=== PATIENT | female | born 1965 | race Caucasian/White ===

== ENCOUNTER 2022-01-05 17:27 | Outpatient (CLI) | payer MEDICAID, SELFPAY | END 2022-01-05 17:28 | disposition home or self-care (01) | LOC: LKVREF 01-13 08:54 | PROVIDERS: PCP Nurse Practitioner Family; Visit Provider Registered Nurse | DX: R35.0 Frequency of micturition (principal); N30.90 Cystitis, unspecified without hematuria | CPT/HCPCS: 87086; 87186 ==

== ENCOUNTER 2022-11-20 12:31 | Outpatient (CLI) | payer MEDICAID, SELFPAY ==
--- OUTSIDE RECORDS SUMMARY | 2022-11-22 01:48 | XMS_ITS | Continuity of Care Document ---
Author Name Unknown Organization [facility] Address [address] [address] [place] [address] Phone Care Team Providers Care Line Camera Operator Name Role Phone Arpan Escudero MD Unavailable Unavailable Allergies, Adverse Reactions, Alerts Substance Reaction Status Criticality No Known Allergies Active No Inform ation Medications Medication Instructions Dosage Effective Dates (start - stop) Status Comments NALTREXONE HCL (unknown strength) take 3 milligram by oral route every day Not Available - Active Lexapro 10 mg tablet take 1 tablet by oral route every day 10 MG - Active estradiol 1 mg tablet take 1 tablet by oral route every day 1 MG - Active Xanax 0.5 mg tablet take up to 3 Tablet by Oral route every day as needed - Active Procedures Procedure Date Colonoscopy Flex; W/bx 1/mx Level Iv-surg Path Gross/micro Routine Serum Collection Established Level 4 New Level 3 Advance Directives Directive Yes / No Effective Date File Name No Information Encounters Encounter Description Practice Location Reason(s) For Visit Diagnoses Date Provider Providers Copied on Encounter [facility], [address] [address], [place], [id number], [place] tel:[phone] [facility] Generalized abdominal pain 3 Kota Antony. [address] [address], [facility] [address], [place], [id number] , [place]. tel:[phone] [facility], [address] [address], [place], [place], [id number], [place] tel:[phone] [facility] GI Symptoms or Concerns (chief complaint) Change in bowel habitGeneralized abdominal painChange in bowel habitGeneralized abdominal pain 3 Serjio Gates. [address], [place], [place], [id number] , [place]. tel: [phone] Referring Provider: Referral Self. [facility], [address] [address], [place], [place], [id number], [place] tel:[phone] [facility] Generalized abdominal pain 3 Kota Antony. [address], [address], [place], [place], [id number] , [place]. tel: [phone] Referring Provider: Referral Self. Established Level 4 [facility], [address] [address], [place], [place], [id number], [place] tel:[phone] [facility] GI Symptoms or Concerns (chief complaint) Generalized abdominal pain 3 Kota Antony. [address] [facility] [address], [facility] [address], [place], [place], [id number] , [place]. tel: [phone] Referring Provider: Stephen Law, [address] [place], [address]. tel:[phone] New Level 3 [facility], [address] [address], [place], [place], [id number], [place] tel:[phone] [facility] GI Symptoms or Concerns (chief complaint) Change in bowel habitsBloatingGener alized abdominal pain 2 Fannie Howell . [address], [address], [place], [place], [id number] , [place]. tel:[phone] Referring Provider: Stephen Law, [address] [place], [address]. tel:[phone] [facility], [address] [address], [place], [place], [id number], [place] tel:[phone] [facility] No Information 2 Fannie Howell . [address], [facility] [address], [place], [id number] , [place]. tel: [phone] [facility], [address] [address], [place], [id number], [place] tel:[phone] [facility] No Information 2 Reena Bueno. [address] [facility] [address], [address], [place], [id number] , [place]. tel: [phone] Family History Family Member Type Diagnosis Age At Onset Son Problem Alive and well Brother Problem (finding) Crohn's disease Father Problem (finding) Alcoholism Sister Problem Alive and well Brother Problem Asthma Daughter Problem Alive and well Brother Problem Alcoholism Mother Problem Hepatitis C Sister Problem (finding) Asthma Brother Problem Diverticular disease Immunizations Vaccine Date Status Comments SARS-COV-2 (COVID-19) vaccin e, mRNA, spike protein, LNP, preservative free, 100 mcg/0.5mL dose or 50 mcg/0.25mL dose administered Note: [facility] bi -directional interface ; Source: Other Registry SARS-COV-2 (COVID-19) vaccin e, mRNA, spike protein, LNP, preservative free, 100 mcg/0.5mL dose or 50 mcg/0.25mL dose administered Note: [facility] bi -directional interface ; Source: Other Registry Afluria Qd administered Note: [facility] bi-directional interface ; Source: Other Registry Payers Payer name Insurance type Covered libertarian ID Authorbisia daniiessence(s) [facility] [id number] Social History Type Description Quantity Date Captured Comments Alcohol Use Details Unknown Caffeine Use Details Unknown Tobacco Use Status No Information Smoking Status No Information Sex Female Chief Complaint And Reason For Visit No Information Reason For Referral Reason For Referral No Information Plan Of Treatment Date Type Action Status Referral Ordered: Colonoscopy Appointment date/timeframe: 08/10/2022 ordered Referral Ordered: Celiac: TTG IgA + Total IgA Appointment date/timeframe: First Available ordered Referral Ordered: TSH Appointment date/timeframe: First Available ordered History Of Present Illness Encounter Date Complaint History Of Prese nt Illness GI Symptoms or Concerns GI Symptoms or Concerns The norah ent is a 56-year-old female undergoing a virtual visit followup, informed consent obtained from patient, a total of 50 minutes spent.Patient was previously seen on 07/20/2021 with a history of abdominal discomfort, constipation and episodes of diarrhea. She was recommended to have increased fiber in her diet, which she states she did without improvement, although we are not too sure on how much fiber she was taking. She complains of generalized gaseousness and bloating and loose stools. She thinks this is worse off the dairy products, but does occur without. She is now about 3 to 4 times a week, developing some gaseousness and loose stools, may gone for several days. She then may go several days without a bowel motion. She denies heartburn, dysphagia, nausea, vomiting, melena, rectal bleeding, or weight loss.Her generalized gaseousness and bloating persists, may be worse with lactulose. She has noted worsening symptoms when she is under stress. The last colono GI Symptoms or Concerns This is a 55-year-old woman, who presents in consultation by Stephen Ramirez. This is a virtual visit and the patient consented to the virtual visit at the onset of the call. Total time spent in discussion between myself and the patient was 17 minutes with an additional 5 minutes spent in chart review and coordination of care.Hieu reports a long-standing tendency toward constipation. In fact, about 5 years ago she had an x-ray showing she was full of stool during a stressful time with her divorce. She took laxative pill for a period of time and symptoms resolved. More recently, in the past 4 months, she has had repetitive diarrhea in the morning, about 4 times per week. There may be a 30-minute break between stools and then it will happen again. Stools are watery and claylike. There can be a sense of bloating and soreness throughout the abdomen, even to touch. She does feel that there has been some improvement in symptoms recently, such that the frequency is less. In gen Functional Status Date Functional Assessmen t No Information Instructions Date Instruction Additional Infor yamilka She will try to decr ease lactose. Trial of a low FODMAP diet. Check TSH, celiac blood tests. Schedule for colonoscopy, ileoscopy, and random biopsies. Related to Generalized abdominal pain High Fiber Diet Related to Bloat ing Constipation Bowel Cleanse (Adul t) Related to Bloating Assessments Type Assessment Date assessment Generalized abdominal pain Kalpesh-0 Patient Care Teams Name Effective Dates (start - stop) Status Members No Information
--- OUTSIDE RECORDS SUMMARY | 2022-11-22 01:49 | XMS_ITS | Patient Health Record ---
Author Name Unknown Organization [facility] Address [address] [place] [address] [address] [place] [address] Care Team Providers Care Bench Repair Technician Name Role Phone James ALCALA, Stephen Tubbs) Primary Care Provide r Unavailable Los Lennon Unavailable [phone] Lissett Barrera Unavailable Unavailable Andrew Saunders Unavailable [phone] Julio Esqueda Unavailable [phone] Jonathon Peres Unavailable [phone] Indy Marquez Unavailable [phone] Shani Mederos Unavailable [phone] Anyi Topete Unavailable [phone] ALLERGIES Allergen (clinical drug ingredient) Drug/Non Drug Allergy documented on EMR Reaction Allergy Type Onset Date Status topiramate Topamax Unknown Drug Allergy Active pregabalin Pregabalin nausea/Dizziness Drug Allergy Active RESULTS Component Value Reference Range Notes MRI : Lumbar Reviewed date:05/16/2022 08:55:54 AM Interpretation: Performing Lab: Notes/Report: Original Report EXAM: MR LUMBAR SPINE WITHOUT CONTRAST CLINICAL INFORMATION: Low back pain. TECHNICAL INFORMATION: T1-weighted, T2 FSE, and STIR sagittal images through the lumbar spine with T1 and T2 FSE axial sections at selected levels. T1-weighted coronal images were also acquired. INTERPRETATION: 5 lumbar levels in lordotic alignment. Conus medullaris terminates at L1 and has normal signal. No evidence of arachnoid disease or abnormal neural development. Benign vertebral body hemangiomas in L1 and L5. Paraspinal soft tissues appear normal. Visualized sacroiliac joints and hip joints are grossly normal. L5-S1: No central or foraminal stenosis. L4-5: Subtle ventral annular fissure, normal facet joints. No central or foraminal stenosis. L3-4: Mild disc degeneration, normal facet joints. No central or foraminal stenosis. L1-2, L2-3: Mild disc degeneration. No central or foraminal stenosis. T12-L1: No central or foraminal stenosis. CONCLUSION: 1. Multilevel mild degenerative disc change without stenosis or impingement. 2. No acute fracture, infection, or neoplasm. Read by: Zacarias Chacon M.D. Reviewed and Electronically Signed by: Zacarias Chacon M.D. MRI : Cervical Spines Reviewed date:05/16/2022 08:55:54 AM Interpretation: Performing Lab: Notes/Report: Original Report EXAM: MRI CERVICAL SPINE WITHOUT CONTRAST CLINICAL INFORMATION: Neck pain, cervicalgia. TECHNICAL INFORMATION: T1 and T2 FSE and STIR sagittal thin sections through the cervical spine with T2 FSE and GRE axial sections at selected levels. Additional right/left sagittal oblique T2 images through the neural foramina were obtained. INTERPRETATION: Partially visualized intracranial structures appear normal. No Chiari malformation. Normal signal in the cervical spinal cord. Upper cervical lordotic straightening. Vertebral body heights are maintained. Normal atlantodental and atlantooccipital articulations. Paraspinal soft tissues appear normal. C2-3: Mild right facet degeneration. No central or foraminal stenosis. C3-4: Mild left facet degeneration. No central or foraminal stenosis. C4-5: Moderate to severe disc degeneration, right asymmetric uncovertebral spurring and small right foraminal disc protrusion without impingement, normal facet joints. No central stenosis. Mild right foraminal stenosis. C5-6: Moderate to severe disc degeneration and trace retrolisthesis, disc bulge and uncovertebral spurring, normal facet joints. Mild central stenosis. Mild bilateral foraminal stenosis. C6-7: Mild disc degeneration, right paracentral 2-3 mm disc protrusion, uncovertebral spurring, normal facet joints. No central or foraminal stenosis. C7-T1, T1-2: No central or foraminal stenosis. T2-3, T3-4: Mild disc degeneration. No central or foraminal stenosis. CONCLUSION: 1. Moderate to severe disc degeneration at C4-5 and C5-6 2. C4-5 small right foraminal disc protrusion and C6-7 right paracentral protrusion without impingement. 3. Mild foraminal stenosis right C4-5, bilateral C5-6. Read by: Zacarias Chacon M.D. Reviewed and Electronically Signed by: Zacarias Chacon M.D. REASON FOR REFERRAL Reason Please evaluate and treat for migraines and numbness in bilateral hands and feet. Please call patient to schedule at [phone]. Diagnosis 1 Low back pain, unspe cified (M54.50) Diagnosis 2 Fibromyalgia (M79.7) Referral Organization [facility] Referring Provider First Name Julio Referring Provider Last Name Dheeraj Referring Provider Speciality Physician Poultry Pinner Referred Provider [facility] Steven haddad Referred Provider Specialty Neurology General Notes Scarlett Rodriguez 023 03:39:29 PM >Please call the patient to schedule and fax back all notes to [phone]. If you need additional records for this referral, please call [phone]. Thanks! Referral Priority Routine Reason Referral for MD edwige scott. Please evaluate and treat for neck, low back, and chronic pain related to fibromyalgia. Please call pt. to schedule. Diagnosis 1 Cervicalgia (M54.2) Diagnosis 2 Low back pain, unspe cified (M54.50) Diagnosis 3 Fibromyalgia (M79.7) Referral Organization [facility] Referring Provider First Name Jonathon Referring Provider Last Name Ja Referring Provider Speciality Physician Poultry Pinner Referred Provider Esteban BookertiMerry montaño Referred Provider Specialty Rehabilitati on General Notes Jaqueline Zapata 2022 04:28:11 PM >[facility] PMAP no PA required ok to schedule, Vivian Gee 04/21/2022 08:25:48 AM >Sent TE to Referral 1. Referral Priority Routine Reason Please refer patient to [facility] for bilateral upper extremity EMG to evaluate chronic bilateral hand numbness and tingling. Patient prefers [place]. Please call patient to schedule at [phone]. Please fax results to [facility] at [phone]. Diagnosis 1 Paresthesias (R20.2) Referral Organization [facility] Referring Provider First Name Los Referring Provider Last Name Saji Referring Provider Speciality Occupation al Medicine Referred Provider Danielle EMGs - All Lo cations Referred Provider Specialty Electromyogr aphy (EMG) General Notes NealnoryScarlett 023 09:28:09 AM >Please call the patient to schedule and fax back all notes to [phone]. If you need additional records for this referral, please call [phone]. Thanks! Referral Priority Routine Reason REHAB PT and OT: MED X CERVICAL-LUMBAR Globally deconditioned. Underlying fibromyalgia. Start low and go slow initially. Highly motivated patient. SIJ, headache, and manual therapy evaluations. Nerve glide exercises for possible bilateral carpal tunnel syndrome. Advise splinting at night. Please assess and treat plantar fasciitis and greater trochanteric bursitis. Diagnosis 1 Cervicalgia (M54.2) Diagnosis 2 Dorsalgia, unspecifi ed (M54.9) Diagnosis 3 Low back pain, unspe cified (M54.50) Diagnosis 4 Fibromyalgia (M79.7) Diagnosis 5 Segmental and somati c dysfunction of sacral region (M99.04) Diagnosis 6 Plantar fascial fibr omatosis (M72.2) Diagnosis 7 Trochanteric bursiti s, unspecified hip (M70.60) Diagnosis 8 Paresthesias (R20.2) Diagnosis 9 Migraine with aura, not intractable, without status migrainosus (G43.109) Diagnosis 10 Muscle wasting and a trophy, not elsewhere classified, 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) Referral Organization [facility] Referring Provider First Name Los Referring Provider Last Name Saji Referring Provider Speciality Occupation al Medicine Referred Organization [facility] Referred Provider Merry Wu Referred Address [address] [facility] [address], [place],[address], Referred Provider Specialty Rehabilitati on General Notes Jaqueline Zapata 2022 10:04:36 AM >[facility] no PA required ok to schedule, Vivian Gee 05/11/2022 07:20:57 AM >Therapy is already scheduled. Referral Priority Routine Reason Please evaluate and treat for migraines and pain and numbness in bilateral hands and feet. Please call patient to schedule at [phone] Diagnosis 1 Migraine with aura, not intractable, without status migrainosus (G43.109) Diagnosis 2 Radiculopathy, cervi marco region (M54.12) Referral Organization [facility] Referring Provider First Name Julio Referring Provider Last Name Dheeraj Referring Provider Speciality Physician Poultry Pinner [facility]erred Provider Specialty Neurology General Notes Scarlett Rodriguez 023 09:41:13 AM >Please call the patient to schedule and fax back all notes to [phone]. If you need additional records for this referral, please call [phone]. Thanks! Referral Priority Routine Reason Please evaluate for bilateral lower extremity numbness and tingling with a bilateral LE EMG at [facility]. Please call the patient at [phone] to schedule the location and time of appt. Diagnosis 1 Radiculopathy, lumba r region (M54.16) Referral Organization [facility] Referring Provider First Name Los Referring Provider Last Name Saji Referring Provider Speciality Occupation al Medicine Referred Provider Danielle [facility] - [facility] Referred Provider Specialty Electromyogr aphy (EMG) General Notes Scarlett Rodriguez 023 11:16:28 AM >Please call the patient to schedule and fax back all notes to [phone]. If you need additional records for this referral, please call [phone]. Thanks! Referral Priority Routine MEDICATIONS Medication SIG (Take, Route, Frequency, Duration) Notes Start Date End Date Status Low Dose Naltrexone .5 mg (Apothecary) LDN 0.5 mg as directed oral 1-2 times per day titrate by pharmacist for 30 days Please call patient at [phone]. 05/10/2022 Active CeleBREX 200 MG 1 capsule with food Orally Once a day Active Estradiol 0.5 MG 1 tablet Orally Once a day Active Xanax 0.5 MG 1 tablet Orally TID Active Omeprazole 20 MG TAKE 1 CAPSULE BY MOUTH ONCE DAILY BEFORE A MEAL Oral for 30 Days Active Lexapro 20 MG 1 tablet Orally Once a day Active Pravastatin Sodium 10 MG 1 tablet Orally Once a day Active tiZANidine HCl 2 MG 1 tablet as needed Orally qhs Active SOCIAL HISTORY Tobacco Use: Social History Observation Description Date Details (start date - stop date) Unknown Sex Assigned At : Social History Observation Description Sex Assigned At Unknown Tobacco Use/Smoking: Question Answer Notes Are you a Uses tobacco in other forms Additional Findings: Tobacco User Chews tobacco Alcohol Screen Question Answer Notes Did you have a drink containing alcohol in the p ast year? 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) Active confirmed Hereditary and idiopathic peripheral neuropathy (327766093) Problem Other chronic pain (G89.29) Active confirmed Chronic pain (08476432) Problem Radiculopathy, cervical region (M54.12) Active confirmed Cervical radiculopathy (08696696) Problem Cervicalgia (M54.2) Active confirmed Cervicalgia (59918476) Problem Dorsalgia, unspecified (M54.9) Active confirmed Backache (220456696) Problem Muscle wasting and atrophy, not elsewhere classified, 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) Active confirmed Muscle wasting disorder (98085913) Problem Trochanteric bursitis, unspecified hip (M70.60) Active confirmed Enthesopathy of hip region (58905796) Problem Plantar fascial fibromatosis (M72.2) Active confirmed Plantar fascial fibromatosis (13779832) Problem Fibromyalgia (M79.7) Active confirmed Fibromyalgia (453011153) Problem Segmental and somatic dysfunction of sacral region (M99.04) Active confirmed Somatic dysfunction of sacral region (720393241) Problem Low back pain, unspecified (M54.50) Active confirmed Low back pain (799627760) Problem Moderate episode of recurrent major depressive disorder (F33.1) Active confirmed Moderate recurrent major depression (96839413) Problem Paresthesias (R20.2) Active confirmed Skin sensation disturbance (78045532) VITAL SIGNS Blood pressure diastolic 76 mm Hg 07/04/2022 Height 64 in 07/04/2022 Blood pressure systolic 112 mm Hg 07/04/2022 Weight 140.6 lbs 07/04/2022 BMI 24.13 kg/m2 07/04/2022 PROCEDURES Procedure Date Ordered Date Performed Result Body Sit e Intervention: 04/20/2022 05/03/2022 sched 05/25 Encounters Encounter Location Date Provider Diagnosis [facility] [address] [place] [address] 03/27/2022 Andrew Saunders [facility] [address] [facility] [address] [place] [address] 04/11/2022 Andrew Saunders Fibromyalgia M79.7 ; Cervicalgia M54.2 ; Low back pain, unspecified M54.50 and Other chronic pain G89.29 [facility] [address] [facility] [address] [place] [address] 04/20/2022 Jonathon Peres Cervicalgia M54.2 ; Fibromyalgia M79.7 ; Low back pain, unspecified M54.50 ; Other chronic pain G89.29 ; Radiculopathy, cervical region M54.12 and Migraine with aura, not intractable, without status migrainosus G43.109 [facility] [address] [place] [address] 04/21/2022 Andrew Saunders [facility] [address] [place] [address] 05/02/2022 Los SOLIS [facility] [address] [place] [address] 05/09/2022 Los Lennon Paresthesias R20.2 ; Low back pain, unspecified M54.50 ; Cervicalgia M54.2 ; Dorsalgia, unspecified M54.9 ; Migraine with aura, not intractable, without status migrainosus G43.109 ; Fibromyalgia M79.7 ; Plantar fascial fibromatosis M72.2 ; Other hereditary and idiopathic neuropathies G60.8 ; Segmental and somatic dysfunction of sacral region M99.04 ; Trochanteric bursitis, unspecified hip M70.60 and Muscle wasting and atrophy, not elsewhere classified, multiple sites M62.59 [facility] [address] [facility] [address] [place] [address] 05/10/2022 Julio Esqueda Cervicalgia M54.2 ; Fibromyalgia M79.7 ; Low back pain, unspecified M54.50 ; Other chronic pain G89.29 ; Radiculopathy, cervical region M54.12 and Migraine with aura, not intractable, without status migrainosus G43.109 [facility] [address] [place] [address] 05/12/2022 Los Lennon [facility] [address] [place] [address] 05/16/2022 Anyi Topete Cervicalgia M54.2 ; Dorsalgia, unspecified M54.9 ; Segmental and somatic dysfunction of sacral region M99.04 ; Plantar fascial fibromatosis M72.2 and Trochanteric bursitis, unspecified hip M70.60 [facility] [address] [place] [address] 05/18/2022 Los Lennon [facility] [address] [place] [address] 05/18/2022 Los Lennon Radiculopathy, lumbar region M54.16 [facility] [address] [place] [address] 05/18/2022 Indy Marquez [facility] [address] [place] [address] 05/22/2022 [facility] Low back pain, unspecified M54.50 ; Cervicalgia M54.2 ; Dorsalgia, unspecified M54.9 ; Plantar fascial fibromatosis M72.2 and Muscle wasting and atrophy, not elsewhere classified, multiple sites M62.59 [facility] [address] [facility] [address] [place] [address] 05/24/2022 Andrew Saunders [facility] [address] [place] [address] 05/24/2022 Anyi Topete Low back pain, unspecified M54.50 ; Cervicalgia M54.2 ; Dorsalgia, unspecified M54.9 ; Plantar fascial fibromatosis M72.2 and Muscle wasting and atrophy, not elsewhere classified, multiple sites M62.59 [facility] [address] [place] [address] 05/25/2022 Andrew Henry Radiculopathy, cervical region M54.12 [facility] [address] [place] [address] 05/29/2022 Los Lennon [facility] [address] [place] [address] 05/29/2022 Los Lennon [facility] [address] [place] [address] 05/29/2022 Anyi Topete [facility] [address] [place] [address] 05/31/2022 Anyi Topete Low back pain, unspecified M54.50 ; Cervicalgia M54.2 ; Dorsalgia, unspecified M54.9 ; Plantar fascial fibromatosis M72.2 and Muscle wasting and atrophy, not elsewhere classified, multiple sites M62.59 [address] [facility] [address] [place] [address] 05/31/2022 Los Lennon [facility] [address] [place] [address] 06/05/2022 Anyi Topete Cervicalgia M54.2 ; Low back pain, unspecified M54.50 ; Dorsalgia, unspecified M54.9 ; Plantar fascial fibromatosis M72.2 and Muscle wasting and atrophy, not elsewhere classified, multiple sites M62.59 [facility] [address] [place] [address] 06/07/2022 Los Lennon [facility] [address] [place] [address] 06/07/2022 Anyi Topete [facility] [address] [place] [address] 06/12/2022 Shani Mederos Cervicalgia M54.2 ; Low back pain, unspecified M54.50 ; Dorsalgia, unspecified M54.9 ; Plantar fascial fibromatosis M72.2 and Muscle wasting and atrophy, not elsewhere classified, multiple sites M62.59 [facility] [address] [place] [address] 06/12/2022 Los Lennon [facility] [address] [facility] [place] [address] 06/14/2022 Anyi Topete [facility] [address] [facility] [place] [address] 06/19/2022 Anyi Topete Cervicalgia M54.2 ; Low back pain, unspecified M54.50 ; Dorsalgia, unspecified M54.9 ; Plantar fascial fibromatosis M72.2 and Muscle wasting and atrophy, not elsewhere classified, multiple sites M62.59 [facility] [address] [facility] [place] [address] 06/21/2022 Anyi Topete Cervicalgia M54.2 ; Low back pain, unspecified M54.50 ; Dorsalgia, unspecified M54.9 ; Plantar fascial fibromatosis M72.2 and Muscle wasting and atrophy, not elsewhere classified, multiple sites M62.59 [facility] [address] [place] [address] 06/26/2022 Los Lennon [facility] [address] [place] [address] 06/26/2022 Los Lennon [facility] [address] [place] [address] 06/26/2022 Anyi Topete [facility] [address] [place] [address] 06/28/2022 [facility] [address] [facility] [place] [address] 07/03/2022 Anyi Topete Cervicalgia M54.2 ; Low back pain, unspecified M54.50 ; Dorsalgia, unspecified M54.9 ; Plantar fascial fibromatosis M72.2 and Muscle wasting and atrophy, not elsewhere classified, multiple sites M62.59 [facility] [address] [facility] [place] [address] 07/04/2022 Los Lennon Paresthesias R20.2 ; Low back pain, unspecified M54.50 ; Cervicalgia M54.2 ; Dorsalgia, unspecified M54.9 ; Migraine with aura, not intractable, without status migrainosus G43.109 ; Fibromyalgia M79.7 ; Plantar fascial fibromatosis M72.2 ; Segmental and somatic dysfunction of sacral region M99.04 ; Trochanteric bursitis, unspecified hip M70.60 and Muscle wasting and atrophy, not elsewhere classified, multiple sites M62.59 [facility] [address] [place] [address] 07/05/2022 Los Lennon [facility] [address] [place] [address] 07/05/2022 [facility] Cervicalgia M54.2 ; Low back pain, unspecified M54.50 ; Dorsalgia, unspecified M54.9 ; Plantar fascial fibromatosis M72.2 and Muscle wasting and atrophy, not elsewhere classified, multiple sites M62.59 [facility] [address] [place] [address] 07/12/2022 Los Lennon [facility] [address] [place] [address] 07/12/2022 Anyi Yoselyn Cervicalgia M54.2 ; Low back pain, unspecified M54.50 ; Dorsalgia, unspecified M54.9 ; Plantar fascial fibromatosis M72.2 and Muscle wasting and atrophy, not elsewhere classified, multiple sites M62.59 [facility] [address] [place] [address] 07/19/2022 Anyi Yoselyn Cervicalgia M54.2 ; Low back pain, unspecified M54.50 ; Dorsalgia, unspecified M54.9 ; Plantar fascial fibromatosis M72.2 and Muscle wasting and atrophy, not elsewhere classified, multiple sites M62.59 [facility] [address] [place] [address] 07/26/2022 Anyi Yoselyn Cervicalgia M54.2 ; Low back pain, unspecified M54.50 ; Dorsalgia, unspecified M54.9 ; Plantar fascial fibromatosis M72.2 and Muscle wasting and atrophy, not elsewhere classified, multiple sites M62.59 [facility] [address] [place] [address] [facility] M54.2 ; Low back pain, unspecified M54.50 ; Dorsalgia, unspecified M54.9 ; Plantar fascial fibromatosis M72.2 and Muscle wasting and atrophy, not elsewhere classified, multiple sites M62.59 [facility] [address] [place] [address] 08/07/2022 Los Lennon [facility] [address] [place] [address] 08/09/2022 Anyi Topete [facility] [address] [place] [address] 08/17/2022 Los Lennon [facility] [address] [place] [address] 08/17/2022 Los Lennon [facility] [address] [place] [address] 08/17/2022 Los Lennon [facility] [address] [place] [address] 08/17/2022 Indy Marquez Cervicalgia M54.2 ; Low back pain, unspecified M54.50 and Muscle wasting and atrophy, not elsewhere classified, multiple sites M62.59 [facility] [address] [place] [address] 08/23/2022 Anyi Topete [facility] [address] [place] [address] 08/30/2022 Anyi Topete [facility] [address] [place] [address] 08/31/2022 Los Lennon Other chronic pain G89.29 [facility] [address] [place] [address] 09/05/2022 Julio Esqueda Other chronic pain G89.29 [facility] [address] [place] [address] 09/06/2022 Anyi Topete ASSESSMENTS Encounter Date Diagnosis Assessment Notes Treatment Notes Treatment Clinical Notes 06/05/2022 Low back pain, unspecified (ICD-10 - M54.50) 06/12/2022 Cervicalgia (ICD-10 - M54.2) 06/05/2022 Cervicalgia (ICD-10 - M54.2) 06/19/2022 Cervicalgia (ICD-10 - M54.2) 06/19/2022 Low back pain, unspecified (ICD-10 - M54.50) 06/21/2022 Cervicalgia (ICD-10 - M54.2) 06/21/2022 Low back pain, unspecified (ICD-10 - M54.50) 07/03/2022 Cervicalgia (ICD-10 - M54.2) 07/03/2022 Low back pain, unspecified (ICD-10 - M54.50) 07/05/2022 Cervicalgia (ICD-10 - M54.2) 09/05/2022 Other chronic pain (ICD-10 - G89.29) 08/31/2022 Other chronic pain (ICD-10 - G89.29) 08/17/2022 Cervicalgia (ICD-10 - M54.2) 08/02/2022 Cervicalgia (ICD-10 - M54.2) 08/02/2022 Low back pain, unspecified (ICD-10 - M54.50) 07/26/2022 Cervicalgia (ICD-10 - M54.2) 07/26/2022 Low back pain, unspecified (ICD-10 - M54.50) 07/19/2022 Cervicalgia (ICD-10 - M54.2) 07/19/2022 Low back pain, unspecified (ICD-10 - M54.50) 07/12/2022 Cervicalgia (ICD-10 - M54.2) 07/04/2022 Low back pain, unspecified (ICD-10 - M54.50) 07/04/2022 Paresthesias (ICD-10 - R20.2) 05/31/2022 Cervicalgia (ICD-10 - M54.2) 05/31/2022 Low back pain, unspecified (ICD-10 - M54.50) 05/25/2022 Radiculopathy, cervical region (ICD-10 - M54.12) 05/24/2022 Cervicalgia (ICD-10 - M54.2) 05/24/2022 Low back pain, unspecified (ICD-10 - M54.50) 05/22/2022 Cervicalgia (ICD-10 - M54.2) 05/22/2022 Low back pain, unspecified (ICD-10 - M54.50) 05/18/2022 Radiculopathy, lumbar region (ICD-10 - M54.16) 05/16/2022 Cervicalgia (ICD-10 - M54.2) 05/16/2022 Dorsalgia, unspecified (ICD-10 - M54.9) 05/10/2022 Cervicalgia (ICD-10 - M54.2) 05/09/2022 Low back pain, unspecified (ICD-10 - M54.50) 05/09/2022 Paresthesias (ICD-10 - R20.2) 04/20/2022 Cervicalgia (ICD-10 - M54.2) 04/11/2022 Cervicalgia (ICD-10 - M54.2) 04/11/2022 Fibromyalgia (ICD-10 - M79.7) 04/11/2022 Low back pain, unspecified (ICD-10 - M54.50) 04/20/2022 Fibromyalgia (ICD-10 - M79.7) 04/20/2022 Low back pain, unspecified (ICD-10 - M54.50) 05/10/2022 Fibromyalgia (ICD-10 - M79.7) 05/10/2022 Low back pain, unspecified (ICD-10 - M54.50) 05/09/2022 Cervicalgia (ICD-10 - M54.2) 05/16/2022 Segmental and somatic dysfunction of sacral region (ICD-10 - M99.04) 05/22/2022 Dorsalgia, unspecified (ICD-10 - M54.9) 05/24/2022 Dorsalgia, unspecified (ICD-10 - M54.9) 05/31/2022 Dorsalgia, unspecified (ICD-10 - M54.9) 07/12/2022 Low back pain, unspecified (ICD-10 - M54.50) 07/04/2022 Cervicalgia (ICD-10 - M54.2) 07/19/2022 Dorsalgia, unspecified (ICD-10 - M54.9) 07/26/2022 Dorsalgia, unspecified (ICD-10 - M54.9) 08/02/2022 Dorsalgia, unspecified (ICD-10 - M54.9) 08/17/2022 Low back pain, unspecified (ICD-10 - M54.50) 07/05/2022 Low back pain, unspecified (ICD-10 - M54.50) 07/03/2022 Dorsalgia, unspecified (ICD-10 - M54.9) 06/21/2022 Dorsalgia, unspecified (ICD-10 - M54.9) 06/19/2022 Dorsalgia, unspecified (ICD-10 - M54.9) 06/12/2022 Low back pain, unspecified (ICD-10 - M54.50) 06/05/2022 Dorsalgia, unspecified (ICD-10 - M54.9) 06/05/2022 Plantar fascial fibromatosis (ICD-10 - M72.2) 06/12/2022 Dorsalgia, unspecified (ICD-10 - M54.9) 06/19/2022 Plantar fascial fibromatosis (ICD-10 - M72.2) 07/05/2022 Dorsalgia, unspecified (ICD-10 - M54.9) 06/21/2022 Plantar fascial fibromatosis (ICD-10 - M72.2) 07/03/2022 Plantar fascial fibromatosis (ICD-10 - M72.2) 08/17/2022 Muscle wasting and atrophy, not elsewhere classified, multiple sites (ICD-10 - M62.59) 08/02/2022 Plantar fascial fibromatosis (ICD-10 - M72.2) 07/12/2022 Dorsalgia, unspecified (ICD-10 - M54.9) 07/04/2022 Dorsalgia, unspecified (ICD-10 - M54.9) 07/26/2022 Plantar fascial fibromatosis (ICD-10 - M72.2) 07/19/2022 Plantar fascial fibromatosis (ICD-10 - M72.2) 05/31/2022 Plantar fascial fibromatosis (ICD-10 - M72.2) 05/24/2022 Plantar fascial fibromatosis (ICD-10 - M72.2) 05/22/2022 Plantar fascial fibromatosis (ICD-10 - M72.2) 05/09/2022 Dorsalgia, unspecified (ICD-10 - M54.9) 05/10/2022 Other chronic pain (ICD-10 - G89.29) Hieu presents to the clinic for a follow up evaluation regarding her chronic dispersed body and fibromyalgia pain. I have reviewed her symptoms and current medications. I checked the [place] [employer] database and I did not find any inconsistencies. I will continue with a treatment plan consisting of conservative care at this time. She will proceed with physical therapy at [facility].To address her migraine and peripheral neuropathic symptoms, I have sent a referral to the [facility] as Noran is not available until 11/2022. Regarding medications, I will stop Topamax due side effects. I will consider Qulipta in the future. The patient declined trialing this medication today and will continue migraine manangement with Excedrin. She is interested in starting LDN and an [facility]. This treatment plan was reviewed with Hieu, and she was agreeable. She will return in one month for further evaluation or sooner if needed. I will continue to monitor her progress, adjusting her treatment plan as necessary. Plan:1. Proceed with C6-7 DAMIAN 2. Referral to [facility] for migraines and peripheral neuropathy3. Stop Topamax 25mg due to side effects4. Start LDN; [facility] to [facility]5. Consider Qulipta; pt declined today 6. Consider Ajovy however pt. has a needle phobia7. Consider MBB/RFA work up for neck and low back8. Consider bilateral carpal tunnel injection 9. Consider referral to hand surgeon regarding carpal tunnel [id number]. Consider SIJ [id number]. Proceed with scheduled physical therapy at [facility] 12. Follow up as needed Discharge instructions reviewed verbally. Discussed the risks/benefits of prescribed medication. The patient is aware that medication may be discontinued at any time due to poor compliance with visits, and recommended treatment. The patient was instructed to return to the office as scheduled and call with any questions, problems or concerns. 04/20/2022 Other chronic pain (ICD-10 - G89.29) Hieu presents to the clinic for a follow up evaluation regarding her chronic dispersed body and fibromyalgia pain. I have reviewed her symptoms and current medications as well as her most recent imaging. I checked the [place] [employer] database and I did not find any inconsistencies. I will continue with a treatment plan consisting of conservative care at this time. I believe Hieu is a good candidate for a C6-7 DAMIAN. This procedure was explained to Hieu and she expresses interest in continuing with this procedure. I will also consider MBB/RFA work up for the neck and low back as potential future treatments. Regarding carpal tunnel syndrome, I will consider a bilateral carpal tunnel injection or referral to hand surgeon in the future. Regarding low back pain, I will consider SIJ injections in the future. I also believe physical therapy will be beneficial. I [facility] with MD consult accordingly. Regarding medications, I will stop Lyrica due to her experienced nausea and dizziness. I will start her on Topamax for further pain management. Titration instructions were explained to her in clinic. I will consider Qulipta if Topamax fails. I will consider Ajovy however she has a needle phobia. I will also consider LDN. I provided her with an LDN info packet. This treatment plan was reviewed with Hieu, and she was agreeable. She will return in one month for further evaluation or sooner if needed. I will continue to monitor her progress, adjusting her treatment plan as necessary. Plan:1. Reviewed cervical and lumbar MRI2. Stop Lyrica due to side effects.3. Start Topamax 25mg 1 tablet QHS for 2 weeks. Then increase to 25mg 2 tablets QHS for 1 week. If tolerated, increase to 25mg 1 tablet QAM, 2 tablets QHS. If not tolerated, remain at current dose. 4. Consider Qulipta if Topamax fails5. Consider Ajovy however pt. has a needle phobia6. Consider LDN, pt. provided with LDN info packet7. Order C6-7 CESI8. Consider MBB/RFA work up for neck and low back9. Consider bilateral carpal tunnel injection 10. Consider referral to hand surgeon regarding carpal tunnel [id number]. Consider SIJ . Referral to [facility] with MD [id number]. Follow up in 1 month Discharge instructions reviewed verbally. Discussed the risks/benefits of prescribed medication. The patient is aware that medication may be discontinued at any time due to poor compliance with visits, and recommended treatment. The patient was instructed to return to the office as scheduled and call with any questions, problems or concerns. 05/16/2022 Plantar fascial fibromatosis (ICD-10 - M72.2) 04/11/2022 Other chronic pain (ICD-10 - G89.29) Hieu presents to the clinic for an evaluation regarding her chronic dispersed body and fibromyalgia pain. I have reviewed her symptoms and current medications. I checked the [facility] database and I did not find any inconsistencies. I will continue with a treatment plan consisting of conservative care. Per Hieu's request I have ordered a cervical and lumbar MRI to [facility] in [place]. Additionally, I have started Lyrica 50mg TID. The titration plan was explained to the patient. She will otherwise continue Celebrex through an outside provider. To address her migraines and numbness in her bilateral hands and feet, I have sent a referral to [facility]. This treatment plan was reviewed with Hieu, and she was agreeable. She will return in one month for further evaluation or sooner if needed. I will continue to monitor her progress, adjusting her treatment plan as necessary. Plan:1. Start Lyrica 50mg TID; titration explained to patient2. Continue Celebrex from outside provider3. Order cervical and lumbar MRI to [email or web address] in [place]4. Referral to [facility] for numbness and tingling in hand and feet and migraines Discharge instructions reviewed verbally. Discussed the risks/benefits of prescribed medication. The patient is aware that medication may be discontinued at any time due to poor compliance with visits, and recommended treatment and/or if patient does adhere to the signed pain contract. The patient was instructed to return to the office as scheduled and call with any questions, problems or concerns. 04/20/2022 Radiculopathy, cervical region (ICD-10 - M54.12) 05/10/2022 Radiculopathy, cervical region (ICD-10 - M54.12) 05/09/2022 Migraine with aura, not intractable, without status migrainosus (ICD-10 - G43.109) 05/16/2022 Trochanteric bursitis, unspecified hip (ICD-10 - M70.60) 05/24/2022 Muscle wasting and atrophy, not elsewhere classified, multiple sites (ICD-10 - M62.59) 05/22/2022 Muscle wasting and atrophy, not elsewhere classified, multiple sites (ICD-10 - M62.59) 05/31/2022 Muscle wasting and atrophy, not elsewhere classified, multiple sites (ICD-10 - M62.59) 07/04/2022 Migraine with aura, not intractable, without status migrainosus (ICD-10 - G43.109) 07/12/2022 Plantar fascial fibromatosis (ICD-10 - M72.2) 07/19/2022 Muscle wasting and atrophy, not elsewhere classified, multiple sites (ICD-10 - M62.59) 08/02/2022 Muscle wasting and atrophy, not elsewhere classified, multiple sites (ICD-10 - M62.59) 07/26/2022 Muscle wasting and atrophy, not elsewhere classified, multiple sites (ICD-10 - M62.59) 07/05/2022 Plantar fascial fibromatosis (ICD-10 - M72.2) 07/03/2022 Muscle wasting and atrophy, not elsewhere classified, multiple sites (ICD-10 - M62.59) 06/19/2022 Muscle wasting and atrophy, not elsewhere classified, multiple sites (ICD-10 - M62.59) 06/21/2022 Muscle wasting and atrophy, not elsewhere classified, multiple sites (ICD-10 - M62.59) 06/12/2022 Plantar fascial fibromatosis (ICD-10 - M72.2) 06/05/2022 Muscle wasting and atrophy, not elsewhere classified, multiple sites (ICD-10 - M62.59) 06/12/2022 Muscle wasting and atrophy, not elsewhere classified, multiple sites (ICD-10 - M62.59) 07/05/2022 Muscle wasting and atrophy, not elsewhere classified, multiple sites (ICD-10 - M62.59) 07/12/2022 Muscle wasting and atrophy, not elsewhere classified, multiple sites (ICD-10 - M62.59) 07/04/2022 Fibromyalgia (ICD-10 - M79.7) 05/10/2022 Migraine with aura, not intractable, without status migrainosus (ICD-10 - G43.109) 04/20/2022 Migraine with aura, not intractable, without status migrainosus (ICD-10 - G43.109) 05/09/2022 Fibromyalgia (ICD-10 - M79.7) 05/09/2022 Plantar fascial fibromatosis (ICD-10 - M72.2) 07/04/2022 Plantar fascial fibromatosis (ICD-10 - M72.2) 07/04/2022 Segmental and somatic dysfunction of sacral region (ICD-10 - M99.04) 05/09/2022 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) 05/09/2022 Segmental and somatic dysfunction of sacral region (ICD-10 - M99.04) 07/04/2022 Trochanteric bursitis, unspecified hip (ICD-10 - M70.60) 07/04/2022 Muscle wasting and atrophy, not elsewhere classified, multiple sites (ICD-10 - M62.59) 05/09/2022 Trochanteric bursitis, unspecified hip (ICD-10 - M70.60) 05/09/2022 Muscle wasting and atrophy, not elsewhere classified, multiple sites (ICD-10 - M62.59) 04/11/2022 Other I, Klaus hinojosa, am serving as a scribe to document services personally performed by Julio Esqueda PA-C, based upon my observations and the provider's statements to me. All documentation has been reviewed by the aforementioned JUNAID as well as Andrew Saunders MD, prior to being entered into the official medical record. I, Andrew Saunders MD attest that the above named individual is acting in scribe capacity, has observed Julio Esqueda's performance of the services and has documented them in accordance with her direction. The documentation recorded by the scribe accurately reflects the service Julio Esqueda PA-C and Andrew Saunders MD, personally performed and the decisions made by them. Thank you very much Dr. Lissett Barrera for kindly referring Hieu to our practice. It is a pleasure to participate in her care. Please feel free to contact me with any questions or concerns. 04/20/2022 Other I, Marv Harrington , am serving as a scribe to document services personally performed by Jonathon Peres PA-C, based upon my observations and the provider's statements to me. All documentation has been reviewed by the aforementioned JUNAID. I, Jonathon Peres PA-C, attest that the above named individual is acting in scribe capacity, has observed my performance of the services and has documented them in accordance with my direction. The documentation recorded by the scribe accurately reflects the service I personally performed and the decisions made during the clinic visit. 05/09/2022 Other I, kanchan Johansen serving as a scribe to document services personally performed by Los Lennon MD, based upon my observations and the provider's statements to me. All documentation has been reviewed by the aforementioned doctor prior to being entered into the official medical record. ILos MD attest that the above named individual is acting in scribe capacity, has observed my performance of the services and has documented them in accordance with my direction. The documentation recorded by the scribe accurately reflects the service I personally performed and the decisions made by me. 05/10/2022 Other I, Klaus hinojosa, am serving as a scribe to document services personally performed by Julio Esqueda PA-C, based upon my observations and the provider's statements to me. All documentation has been reviewed by the aforementioned JUNAID. I, Julio Esqueda PA-C, attest that the above named individual is acting in scribe capacity, has observed my performance of the services and has documented them in accordance with my direction. The documentation recorded by the scribe accurately reflects the service I personally performed and the decisions made during the clinic visit. 07/04/2022 Other I, Marv Harrington , am serving as a scribe to document services personally performed by Los Lennon MD, based upon my observations and the provider's statements to me. All documentation has been reviewed by the aforementioned doctor prior to being entered into the official medical record. Los Vega MD attest that the above named individual is acting in scribe capacity, has observed my performance of the services and has documented them in accordance with my direction. The documentation recorded by the scribe accurately reflects the service I personally performed and the decisions made by me. PLAN OF TREATMENT Pending Test Test Name Order Date MRI : Cervical Spines 04/11/2022 MRI : Lumbar 04/11/2022 Insurance Providers Payer Name Payer Address Payer Phone Subscriber Number Group Number Insured Name Patient Relationship to Insured Coverage Start Date Coverage End Date [facility] [address] [place] [address] [id number] Hieu Eddy Self - patient is the insured [address] [place] [address] [address] [address] [place], [place] [id number] Hieu Eddy Self - patient is the insured MEDICAL (GENERAL) HISTORY Medical History History ICD Code Fibromyalgia Depression Anxiety High cholesterol Hypertension Migraines Headaches
== END 2022-11-20 12:32 | disposition home or self-care (01) ==
LOC: NFLDREF 11-22 01:47
PROVIDERS: PCP Nurse Practitioner Family; Referring Provider Nurse Practitioner Family; Visit Provider Registered Nurse
DX: R30.0 Dysuria (principal); N39.0 Urinary tract infection, site not specified; N30.01 Acute cystitis with hematuria
CPT/HCPCS: 87086; 87186